=== PATIENT | female | born 1985 | race Caucasian/White ===

== ENCOUNTER → 2016-07-31 | Outpatient (CLI) | payer BC ==
[2016-07-31 14:51] LABS: CHLORIDE,CL 105 mmol/L (98-110); SODIUM,NA 139 mmol/L (136-146)
== END | disposition home or self-care (01) ==
LOC: MW.CHFP 14:08
PROVIDERS: ATTEND Nurse Practitioner Family
DX: R11.0 Nausea (principal); N13.70 Vesicoureteral-reflux, unspecified; Z87.440 Personal history of urinary (tract) infections
CPT/HCPCS: 36415; 80048; 81001; 84703; 85025; 87086

== ENCOUNTER 2016-11-29 07:25 | Day surgery (SDC) | payer BC ==
[~2016-11-29 07:25] MED LIST: Lactated Ringers 1,000 ML IV SCH; Lidocaine 2% 5 ML SDV ONE; Midazolam 1 MG/ML 2 ML SDV ONE; Neostigmine Methylsulfate 1 MG/ML 5 ML Syringe ONE; Ondansetron 4 MG/2 ML SDV ONE; Propofol 200 MG/20 ML SDV ONE; Rocuronium 10 MG/ML 10 ML Syringe ONE; fentaNYL 250 MCG/5 ML SDV ONE
[2016-11-29] MEDS ORDERED: EPINEPHrine 1 MG/ML SDV ONE (07:37)
[2016-11-29] MEDS ORDERED: Oxymetazoline 0.05% Nasal Spray 15 ML Bottle ONE (07:37)
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
[2016-11-29] MEDS ORDERED: Etomidate 2 MG/ML 20 ML SDV IVPUSH ONE (09:10)
--- NOTE | 2016-11-29 09:17 | PCM.OPNOTE ---
- General Post-Op/Procedure Note Condition: Good Free Text/Narrative:: Diagnosis: Recurrent acute tonsillitis Procedure: Bilateral tonsillectomy Surgeon: Marni Tatum MD Anesthesia: GA Anesthesiologist: Raúl Meeks Date of procedure: 11/29/2016 Indications: Recurrent acute tonsillitis Findings: Bialteral Gr 2 tonsils with tonsilloliths; Left tonsil adherent to the tonsillar bed Operation Details: An informed consent was obtained. A time out was performed and the patient was brought back to the operating room. General anesthesia was administered with an endotracheal tube. The table was turned 90 away from the anesthesia cart. Patient was appropriately positioned on the operating table. An appropriately sized Fiore Zackary mouth gag was positioned and suspended from a Lord stand. The right tonsil was grasped with a Fazal Brown tonsil holding forceps, upper pole dissected with bipolar forceps. The lower pole was clamped with a negus forceps and ligated with a 2.0 silk tie. The tonsillar fossa was packed with an oxymetazoline 0.05% soaked 2 x 2 gauze. The left tonsil was then similarly dissected and clamped and ligated and fossa packed with an oxymetazoline 0.05% soaked 2 x 2 gauze. Hemostasis was achieved bilaterally with the bipolar cautery at a setting of 10 W. Bilateral fossae were irrigated with warm saline and hemostasis was ensured. Postnasal space was suctioned clear. This concluded the procedure. Mouth gag was removed the oral cavity was inspected. Lips gums and teeth were intact. Lubricating jelly was applied to the lips. The patient was turned over to the anesthesiologist for recovery. Specimens: bilateral tonsils IV fluids: 1600 ml Blood loss: 60 ml Blood products: nil Disposition: PACU for recovery Follow up: As required
[2016-11-29] MEDS ORDERED: Dexamethasone 4 MG/ML 5 ML MDV ONE (09:20)
[2016-11-29] MEDS ORDERED: HYDROmorphone 2 MG/ML Syringe ONE (09:31)
[2016-11-29] MEDS ORDERED: Labetalol 5 MG/ML 5 ML Syringe ONE (09:33)
[2016-11-29] MEDS ORDERED: Acetaminophen 325 MG Tab PO PRN (10:16)
[2016-11-29] MEDS ORDERED: Ibuprofen 400 MG Tab PO PRN (10:16)
[2016-11-29] MEDS ORDERED: oxyCODONE 5 MG Tab PO PRN (10:17)
[2016-11-29] MEDS ORDERED: Labetalol 100 MG/20 ML MDV IVPUSH ONE (10:27)
[2016-11-29] MEDS: fentaNYL 100 MCG/2 ML SDV IVPUSH PRN ×4 (10:30→11:00)
[2016-11-29] MEDS ORDERED: Labetalol 100 MG/20 ML MDV ONE (10:35)
[2016-11-29] MEDS ORDERED: diphenhydrAMINE 50 MG/ML SDV IVPUSH ONE (11:24)
[2016-11-29 15:21] VITALS: BP 139/92
== END 2016-11-29 14:20 | disposition home or self-care (01) ==
LOC: MW.SDS 07:25
PROVIDERS: ATTEND Otolaryngology
DX: J35.1 Hypertrophy of tonsils (principal); J45.990 Exercise induced bronchospasm; F17.220 Nicotine dependence, chewing tobacco, uncomplicated; E66.9 Obesity, unspecified; Z87.440 Personal history of urinary (tract) infections; Z88.1 Allergy status to other antibiotic agents; Z88.8 Allergy status to other drugs, medicaments and biological substances; Z91.010 Allergy to peanuts; Z79.899 Other long term (current) drug therapy; Z68.31 Body mass index [BMI] 31.0-31.9, adult
CPT/HCPCS: 42826; 81025; 88304; A9270; J1100; J1170; J1200; J2250; J2405; J3010; J7120; 00170; J0171; J2704

== ENCOUNTER 2016-12-10 21:39 | Emergency (ER) | payer BC ==
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
[2016-12-11 05:06] VITALS: BP 147/88
== END 2016-12-10 22:46 | disposition home or self-care (01) ==
LOC: MW.ED 21:39
DX: I80.9 Phlebitis and thrombophlebitis of unspecified site (principal); F41.9 Anxiety disorder, unspecified; F32.9 Major depressive disorder, single episode, unspecified; E66.9 Obesity, unspecified; F17.210 Nicotine dependence, cigarettes, uncomplicated; Z88.5 Allergy status to narcotic agent; Z79.899 Other long term (current) drug therapy; Z87.440 Personal history of urinary (tract) infections; Z88.1 Allergy status to other antibiotic agents; Z68.30 Body mass index [BMI] 30.0-30.9, adult
CPT/HCPCS: 99282; 99283

== ENCOUNTER 2018-09-24 19:24 | Emergency (ER) | payer BC ==
[2018-09-24] MEDS ORDERED: diphenhydrAMINE 50 MG/ML SDV ONE (19:28)
[2018-09-24] MEDS ORDERED: methylPREDNISolone Sodium Succinate 125 MG/2 ML SDV IVPUSH STA (19:33)
[2018-09-24] MEDS ORDERED: diphenhydrAMINE 50 MG/ML SDV IVPUSH ONE (19:33)
[2018-09-24] MEDS: methylPREDNISolone Sodium Succinate 125 MG/2 ML SDV ONE ×2 (19:38→19:57)
[2018-09-24] MEDS ORDERED: Ondansetron 4 MG/2 ML SDV IVPUSH ONE (19:48)
[2018-09-24] MEDS ORDERED: Famotidine 20 MG/2 ML SDV IVPUSH ONE (19:49)
[2018-09-24] MEDS ORDERED: Ondansetron 4 MG/2 ML SDV ONE (19:49)
[2018-09-24] MEDS ORDERED: Famotidine 20 MG/2 ML SDV ONE (19:50)
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
[2018-09-24 20:47] VITALS: BP 117/51
== END 2018-09-24 21:06 | disposition home or self-care (01) ==
LOC: MW.ED 19:24
DX: T78.1XXA Other adverse food reactions, not elsewhere classified, initial encounter (principal); R06.4 Hyperventilation; E66.9 Obesity, unspecified; Z98.890 Other specified postprocedural states; Z88.5 Allergy status to narcotic agent; Z88.1 Allergy status to other antibiotic agents
CPT/HCPCS: 96374; 96375; 99284; J1200; J2405; J2930; J3490; 99282